=== PATIENT | male | born 1980 | race Caucasian/White ===

== ENCOUNTER 2017-05-29 17:40 | Emergency (ER) | payer BC, MEDICAID ==
[2017-05-29 17:59] VITALS: BMI 28.3
[2017-05-29 18:03] VITALS: BP 145/90; RESP 18; TEMP 99.6; O2SAT 98
[2017-05-29] MEDS ORDERED: Amoxicillin-Clav 875-125 mg Tab PO STA (19:37)
--- NOTE | 2017-05-29 19:43 | C.PDOC ---
History Of Present Illness 36 year old male c PMHx HLD presents to the ED with complaints of fever, sore throat, headache, dizziness, nausea, earache, swelling to the right cheek, and cough for approximately 3-4 days. He states he feels bump on his R sided neck. Patient states he has been using acetaminophen with relief which did help. Denies recent travel, sick contacts, or diarrhea. Time Seen by Provider: 05/29/17 19:08 Chief Complaint (Nursing): ENT Problem History Per: Patient History/Exam Limitations: no limitations Onset/Duration Of Symptoms: Days (3-4 days) Current Symptoms Are (Timing): Still Present Recent travel outside of the [place]: No Additional History Per: Family () Past Medical History Reviewed: Historical Data, Nursing Documentation, Vital Signs Vital Signs: Last Vital Signs Temp 99.6 F 05/29/17 20:16 Pulse 106 H 05/29/17 20:16 Resp 18 05/29/17 20:16 BP 145/90 05/29/17 20:16 Pulse Ox 98 05/29/17 20:49 - Medical History PMH: Hypercholesterolemia - [facility] Procedures INJECT/INFUSE NEC (11/19/13) Family History: States: Unknown Family Hx - Social History Hx Tobacco Use: Yes Hx Alcohol Use: No Hx Substance Use: No - Immunization History Hx Tetanus Toxoid Vaccination: Yes Hx Influenza Vaccination: No Hx Pneumococcal Vaccination: No Review Of Systems Except As Marked, All Systems Reviewed And Found Negative. Cardiovascular: Negative for: Chest Pain, Palpitations Respiratory: Negative for: Shortness of Breath Physical Exam - Physical Exam Additional Physical Exam Comments: Constitutional: No acute distress. Head: Normocephalic. Atraumatic. Mild swelling visible to the right maxilla. Eyes: PERRL. ENT: Moist mucous membranes. Left TM erythema. Pharyngeal erythema. No exudates. Right sided lymph adenopathy. Teeth: Poor dentition. Neck: Supple. No nuchal rigidity. Cardiovascular: Regular rate. Radial pulse 2+ bilaterally. Chest: No tenderness. Respiratory: Clear to auscultation bilaterally. GI: Soft. Nontender. Nondistended. Back: No CVA tenderness. Musculoskeletal: No tenderness or swelling of extremities. Skin: No rash. Neurologic: Alert, no focal deficit. ED Course And Treatment O2 Sat by Pulse Oximetry: 98 (room air ) Medical Decision Making Medical Decision Making: Will treat with Augmentin for otitis media, pharyngitis, and possible dental infection. Instructed to f/u with dental, return to ER for worsening pain, fever , dyspnea, vomiting, stiff neck, or any other problem. Disposition - Disposition Disposition: HOME/ ROUTINE Disposition Time: 19:42 Condition: STABLE Prescriptions: Amoxicillin/Clavulanate [Augmentin 875 MG-125 MG] 1 tab PO BID #20 tab Famotidine [Pepcid] 1 tab PO BID #14 tab Ibuprofen [Motrin] 600 mg PO Q6 #25 tab Instructions: Pharyngitis (ED), Otitis Media (ED), Toothache (ED) Forms: Work Excuse - Clinical Impression Clinical Impression: Otitis media, Pharyngitis, Pain, dental - Scribe Statement The provider has reviewed the documentation as recorded by the Scribmagalie Garzon All medical record entries made by the Santaibmagalie were at my direction and personally dictated by me. I have reviewed the chart and agree that the record accurately reflects my personal performance of the history, physical exam, medical decision making, and the department course for this patient. I have also personally directed, reviewed, and agree with the discharge instructions and disposition.
[2017-05-29] MEDS ORDERED: Amoxicillin-Clav 875-125 mg Tab PO ONE (19:47)
[2017-05-29 20:17] VITALS: PULSE 106
== END 2017-05-29 20:00 | disposition home or self-care (01) ==
LOC: C.ER 17:40
DX: J02.9 Acute pharyngitis, unspecified (principal); K08.89 Other specified disorders of teeth and supporting structures; H66.90 Otitis media, unspecified, unspecified ear
CPT/HCPCS: 96372; 99285; J1885

== ENCOUNTER 2018-04-07 19:07 | Emergency (ER) | payer BC, MEDICAID, OTHER ==
[2018-04-07 19:08] VITALS: BMI 28.3
[2018-04-07 19:32] VITALS: RESP 18
[2018-04-07 20:10] LABS: BASO # 0.1 K/uL (0.0-0.2); BASO % 0.8 % (0.0-2.0); EOS % 0.2 % (0.0-4.0); HEMOGLOBIN 15.1 g/dL (12.0-18.0); LYMPH # 1.5 K/uL (1.0-4.3); LYMPH % 18.6 % (20.0-40.0); MEAN CORPUSCULAR HGB CONC 33.6 g/dL (33.0-37.0); MEAN PLATELET VOLUME 8.7 fL (7.2-11.7); MONO # 1.2 K/uL (0.0-0.8); MONO % 15.6 % (0.0-10.0); NEUT # 5.2 K/uL (1.8-7.0); NEUT % 64.8 % (50.0-75.0); NRBC % 0.1 % (0.0-2.0); RBC 5.58 Mil/uL (4.40-5.90); RED CELL DISTRIBUTION WIDTH 13.9 % (11.5-14.5)
[2018-04-07 20:15] LABS: MEAN CELL VOLUME 80.4 fL (80.0-94.0)
[2018-04-07 20:17] LABS: URINE BILIRUBIN NEGATIVE (NEGATIVE); URINE BLOOD NEGATIVE (NEGATIVE); URINE CLARITY Clear (Clear); URINE COLOR Yellow (YELLOW); URINE GLUCOSE (UA) NORMAL (Normal); URINE LEUKOCYTE ESTERASE NEG Leu/uL (Negative); URINE PROTEIN NEGATIVE (NEGATIVE); URINE UROBILINOGEN NORMAL mg/dL (0.2-1.0)
[2018-04-07 20:22] LABS: ALB/GLOB RATIO 1.1 (1.0-2.1); ALBUMIN 4.4 g/dL (3.5-5.0); ALT/SGPT 52 U/L (21-72); AST/SGOT 32 U/L (17-59); BLOOD UREA NITROGEN 16 mg/dL (9-20); CALCIUM 9.4 mg/dl (8.6-10.4); GFR AFRICAN-AMERICAN > 60; GFR NON-AFRICAN AMERICAN > 60; LIPASE 35 U/L (23-300)
[2018-04-07] MEDS ORDERED: Sodium Chloride 0.9% 1,000 ML IV ONE ×2 (21:01)
--- NOTE | 2018-04-07 21:15 | C.PDOC ---
History Of Present Illness 37 year old male presents to the emergency department with complaints of abdominal pain associated with nausea, vomiting, diarrhea, body aches, fever, and chills since yesterday. Chief Complaint (Nursing): Abdominal Pain History Per: Patient Onset/Duration Of Symptoms: Days (1) Current Symptoms Are (Timing): Still Present Quality Of Discomfort: "Pain" Associated Symptoms: Fever, Chills, Nausea, Vomiting, Diarrhea Past Medical History Reviewed: Historical Data, Nursing Documentation, Vital Signs Vital Signs: Last Vital Signs Temp 101.3 F H 04/07/18 19:29 Pulse 93 H 04/07/18 19:29 Resp 18 04/07/18 19:29 BP 132/70 04/07/18 19:29 Pulse Ox 98 04/07/18 21:21 - Medical History PMH: Hypercholesterolemia Surgical History: No Surg Hx - [facility] Procedures INJECT/INFUSE NEC (11/19/13) Family History: States: No Known Family Hx - Social History Hx Tobacco Use: Yes Hx Alcohol Use: No Hx Substance Use: No - Immunization History Hx Tetanus Toxoid Vaccination: Yes Hx Influenza Vaccination: No Hx Pneumococcal Vaccination: No Review Of Systems Except As Marked, All Systems Reviewed And Found Negative. Constitutional: Positive for: Fever, Chills, Malaise Gastrointestinal: Positive for: Nausea, Vomiting, Abdominal Pain, Diarrhea Physical Exam - Physical Exam Appears: Non-toxic, No Acute Distress Cardiovascular: Rhythm Regular Respiratory: Normal Breath Sounds Gastrointestinal/Abdominal: Normal Exam, Soft, No Guarding, No Rebound ED Course And Treatment - Laboratory Results Result Diagrams: 04/07/18 20:05 04/07/18 20:05 O2 Sat by Pulse Oximetry: 98 (RA) Pulse Ox Interpretation: Normal Medical Decision Making Medical Decision Making: Plan: CMP Lipase CBC NaCl IV Fluids Tylenol 975mg PO Urinalysis Disposition - Disposition Referrals: [facility] at [facility] [Outside] Disposition: HOME/ ROUTINE Disposition Time: 23:32 Condition: STABLE Prescriptions: Dicyclomine [Bentyl] 10 mg PO QID #20 cap Ibuprofen [Motrin] 600 mg PO Q6 #20 tab Instructions: Gastroenteritis (DC), Fever, Adult (DC) Forms: [facility] [id number] (Armenian) - POA Present On Arrival: None - Clinical Impression Clinical Impression: Abdominal pain, Gastroenteritis, Fever - Scribe Statement The provider has reviewed the documentation as recorded by the Scribe (Jerry Kirkland) Provider Attestation: All medical record entries made by the Scribe were at my direction and personally dictated by me. I have reviewed the chart and agree that the record accurately reflects my personal performance of the history, physical exam, medical decision making, and the department course for this patient. I have also personally directed, reviewed, and agree with the discharge instructions and disposition.
[2018-04-07 23:33] VITALS: BP 138/82; PULSE 77; TEMP 100
[2018-04-07 23:35] VITALS: O2SAT 98
== END 2018-04-07 23:58 | disposition home or self-care (01) ==
LOC: C.ER 19:07 → SUPCPDRO 19:07 → C.ER 23:58
DX: K52.9 Noninfective gastroenteritis and colitis, unspecified (principal); R10.9 Unspecified abdominal pain; R50.9 Fever, unspecified
CPT/HCPCS: 80053; 81001; 83690; 85025; 87804; 96360; 99285; J7040

== ENCOUNTER 2018-09-01 19:42 | Emergency (ER) | payer MEDICAID ==
[2018-09-01 19:42] VITALS: BMI 28.3
[2018-09-01 20:03] VITALS: PULSE 97; RESP 16; TEMP 98.9; O2SAT 98
--- NOTE | 2018-09-01 21:00 | C.PDOC ---
History Of Present Illness 38 year old male presents to the ER with a complaint of nasal congestion, body aches, sore throat, and malaise for the past 2 days. Patient states he feels unwell for work and came in for evaluation. He has been taking OTC medications with no relief. Denies fever or chills. Time Seen by Provider: 09/01/18 20:17 Chief Complaint (Nursing): Cough, Cold, Congestion History Per: Patient History/Exam Limitations: no limitations Onset/Duration Of Symptoms: Days Current Symptoms Are (Timing): Still Present Location Of Pain: Throat, Diffuse Myalgias Sick Contacts (Context): None Associated Symptoms: Sore Throat, Myalgias, Nasal Congestion, Other (Malaise). denies: Fever, Chills Ear Symptoms: Bilateral: None Recent travel outside of the [place]: No Past Medical History Reviewed: Historical Data, Nursing Documentation, Vital Signs Vital Signs: Last Vital Signs Temp 98.9 F 09/01/18 20:00 Pulse 97 H 09/01/18 20:00 Resp 16 09/01/18 20:00 BP Pulse Ox 98 09/01/18 20:00 - Medical History PMH: Hypercholesterolemia - [facility] Procedures INJECT/INFUSE NEC (11/19/13) Family History: States: Unknown Family Hx - Social History Hx Tobacco Use: Yes Hx Alcohol Use: No Hx Substance Use: No - Immunization History Hx Tetanus Toxoid Vaccination: No Hx Influenza Vaccination: No Hx Pneumococcal Vaccination: No Review Of Systems Constitutional: Positive for: Malaise, Other (Body aches). Negative for: Fever, Chills ENT: Positive for: Nose Congestion, Throat Pain Cardiovascular: Negative for: Chest Pain, Palpitations Respiratory: Negative for: Cough, Shortness of Breath Gastrointestinal: Negative for: Nausea, Vomiting Genitourinary: Negative for: Dysuria, Hematuria Physical Exam - Physical Exam Appears: Non-toxic, No Acute Distress Skin: Normal Color, Warm, Dry Head: Atraumatic, Normacephalic Eye(s): bilateral: Normal Inspection Ear(s): Bilateral: Normal Nose: Normal Oral Mucosa: Moist Throat: Normal, No Erythema, No Exudate Neck: Normal, Supple Chest: Symmetrical, No Tenderness Cardiovascular: Rhythm Regular Respiratory: Normal Breath Sounds, No Rales, No Rhonchi, No Wheezing Neurological/Psych: Oriented x3, Normal Speech ED Course And Treatment O2 Sat by Pulse Oximetry: 98 (room air) Pulse Ox Interpretation: Normal Progress Note: Patient is resting comfortably in the ER in no acute distress, afebrile, vitals are stable, will discharge home with instructions to take OTC medication as needed and follow up with PMD for further evaluation. 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 - Scribe Statement The provider has reviewed the documentation as recorded by the Scribe Kemar Laguna All medical record entries made by the Scribe were at my direction and personally dictated by me. I have reviewed the chart and agree that the record accurately reflects my personal performance of the history, physical exam, medical decision making, and the department course for this patient. I have also personally directed, reviewed, and agree with the discharge instructions and disposition.
== END 2018-09-01 21:08 | disposition home or self-care (01) ==
LOC: C.ER 19:42
DX: J06.9 Acute upper respiratory infection, unspecified (principal); E78.00 Pure hypercholesterolemia, unspecified; Z72.0 Tobacco use

== ENCOUNTER 2018-11-18 18:49 | Emergency (ER) | payer MEDICAID ==
[2018-11-18 18:49] VITALS: BMI 28.3
[2018-11-18 19:13] VITALS: RESP 18; TEMP 99.2
--- NOTE | 2018-11-18 20:22 | C.PDOC ---
History Of Present Illness 38 y/o male presents to the ED complaining of flu-like symptoms developing since 2 days ago. Associated with subjective fever, cough, bodyaches, vomiting and diarrhea. Patient states he received a flu shot 5 days ago. Patient denies any chest pain, SOB, dizziness, or other associated symptoms. Time Seen by Provider: 11/18/18 19:31 Chief Complaint (Nursing): Flu-like Symptoms History Per: Patient History/Exam Limitations: no limitations Onset/Duration Of Symptoms: Days (x2) Current Symptoms Are (Timing): Still Present Location Of Pain: Diffuse Myalgias Associated Symptoms: Fever, Cough, Vomiting, Diarrhea Past Medical History Reviewed: Historical Data, Nursing Documentation, Vital Signs Vital Signs: Last Vital Signs Temp 99.2 F 11/18/18 19:07 Pulse 100 H 11/18/18 19:07 Resp 18 11/18/18 19:07 BP 126/77 11/18/18 19:07 Pulse Ox 97 11/18/18 19:07 - Medical History PMH: Hypercholesterolemia Surgical History: No Surg Hx - [facility] Procedures INJECT/INFUSE NEC (11/19/13) Family History: States: Unknown Family Hx - Social History Hx Tobacco Use: Yes Hx Alcohol Use: No Hx Substance Use: No - Immunization History Hx Tetanus Toxoid Vaccination: No Hx Influenza Vaccination: Yes Hx Pneumococcal Vaccination: No Review Of Systems Except As Marked, All Systems Reviewed And Found Negative. Constitutional: Positive for: Fever, Other (Body aches) ENT: Negative for: Ear Pain, Throat Pain Cardiovascular: Negative for: Chest Pain, Palpitations Respiratory: Positive for: Cough. Negative for: Shortness of Breath, Wheezing Gastrointestinal: Positive for: Nausea, Vomiting, Diarrhea Physical Exam - Physical Exam Appears: Well, Non-toxic, No Acute Distress Skin: Normal Color, Warm, Dry, No Rash Head: Atraumatic, Normacephalic Eye(s): bilateral: Normal Inspection, PERRL, EOMI Ear(s): Bilateral: Normal Nose: Normal Oral Mucosa: Moist Throat: Normal, No Erythema, No Exudate Neck: Normal ROM, Supple Chest: Symmetrical Cardiovascular: Rhythm Regular, No Friction Rub, No Murmur Respiratory: Normal Breath Sounds, No Rales, No Rhonchi, No Wheezing Gastrointestinal/Abdominal: Soft, No Tenderness, No Distention Extremity: Normal ROM, No Swelling Extremity: Bilateral: Atraumatic, Normal ROM Neurological/Psych: Oriented x3, Normal Speech Gait: Steady ED Course And Treatment O2 Sat by Pulse Oximetry: 97 (RA) Pulse Ox Interpretation: Normal Medical Decision Making Medical Decision Making: Plan: - Flu swab Progress: Flu negative, patient informed. On re-exam, the patient is resting comfortably. Lungs are CTA, heart is RRR, ambulatory in the ED with steady gait. Disposition - Disposition Referrals: [facility] at [facility] [Outside] Disposition: HOME/ ROUTINE Disposition Time: 20:52 Condition: STABLE Additional Instructions: Follow up with the medical doctor within 1-2 days. Return if worsened. Prescriptions: Ibuprofen [Motrin] 600 mg PO TID #21 tab predniSONE [Prednisone] 20 mg PO BID #10 tab Instructions: Viral Syndrome (DC) Forms: [facility] (Lao), Work Excuse - Clinical Impression Clinical Impression: Viral upper respiratory infection, Influenza-like illness - PA / MANAGER HARDWARE / Resident Statement MD/DO has reviewed & agrees with the documentation as recorded. - Scribe Statement The provider has reviewed the documentation as recorded by the Scribmagalie Araujo All medical record entries made by the Santaibmagalie were at my direction and personally dictated by me. I have reviewed the chart and agree that the record accurately reflects my personal performance of the history, physical exam, medical decision making, and the department course for this patient. I have also personally directed, reviewed, and agree with the discharge instructions and disposition.
[2018-11-18 20:47] VITALS: BP 113/86; PULSE 101
[2018-11-18 20:55] VITALS: O2SAT 97
== END 2018-11-18 21:03 | disposition home or self-care (01) ==
LOC: C.ER 18:49
DX: J11.1 Influenza due to unidentified influenza virus with other respiratory manifestations (principal); Z87.891 Personal history of nicotine dependence